=== PATIENT | male | born 1960 | race African-American/Black ===

== ENCOUNTER 2018-04-27 08:09 | Emergency (ER) | payer MEDICAID ==
[~2018-04-27] VITALS: Ht 172.7 cm; Wt 90.7 kg
[2018-04-27 08:10] VITALS: BP 146/83
[2018-04-27] MEDS ORDERED: KETOROLAC TROMETH 60MG/2ML VIAL IM ONE (09:00)
[2018-04-27] MEDS ORDERED: METHOCARBAMOL 500 MG TAB PO ONE (09:00)
== END 2018-04-27 09:50 | disposition home or self-care (01) ==
LOC: ER 08:09
DX: M53.86 Other specified dorsopathies, lumbar region (principal); I10 Essential (primary) hypertension; F17.210 Nicotine dependence, cigarettes, uncomplicated; F12.90 Cannabis use, unspecified, uncomplicated; F15.90 Other stimulant use, unspecified, uncomplicated; Z88.0 Allergy status to penicillin; V49.59XA Passenger injured in collision with other motor vehicles in traffic accident, initial encounter; Y93.89 Activity, other specified; Y99.8 Other external cause status; Y92.89 Other specified places as the place of occurrence of the external cause
CPT/HCPCS: 72100; 96372; 99283; J1885